=== PATIENT | male | born 1955 | race Caucasian/White ===

== ENCOUNTER 2017-04-26 17:37 | Emergency (ER) | payer BC, OTHER ==
[~2017-04-26] VITALS: Ht 180.3 cm; Wt 77.1 kg
[2017-04-26] MEDS ORDERED: NS IV 1000 ML 1,000 ML IV ONE (18:07)
--- NOTE | 2017-04-26 18:10 | ED Syncope ---
General Chief Complaint: Cardiac/General Problems Stated Complaint: LOW BP Nursing Triage Note: PT STATES HE HAD SUDDEN ONSET OF DIAPHORESIS AT HOME WHILE SITTING, STATES PT WAS HYPOTENSIVE. PT ALSO STATES HE BEGAN TO HAVE A HEADACHE WHILE ON THE WAY HERE BUT DENIES ANY PAIN OR DISCOMFORT NOW. Source of Information: Patient, RN Notes Reviewed, Spouse Exam Limitations: No Limitations History of Present Illness Time Seen by Provider: 17:57 Initial Comments Patient presents along c/ his c/ c/o having an episode shortly AFTER [employer] of becoming dizzy/lightheaded, as well as sweaty. Relatively short lived. found the patient's BP to be low during the event, although the patient states his BP always runs on the lower end. Upon arrival here, he is back to baseline and has no complaints @ this time. Was out in the heat and humidity earlier today. 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) All Other Systems Reviewed Negative Unless Noted: Yes (Negative excepted noted.) Past Zyimiqs-Msxelg-Jomlsm Hx Patient Social History Alcohol Use: Denies Use Recreational Drug Use: No Smoking Status: Current Everyday Smoker Type Used: Cigarettes Recent Foreign Travel: No Contact w/Someone Who Travel: No Recent Infectious Disease Expo: No Recent Hopitalizations: No Seasonal Allergies Seasonal Allergies: No Surgeries Surgeries: Orthopedic Physical Exam Vital Signs Vital Sign - Last 12Hours 04/26/17 04/26/17 17:54 20:10 Temp 96.9 Pulse 62 Resp 18 B/P (MAP) 112/72 Pulse Ox 99 Capillary Refill : Less Than 3 Seconds General Appearance: No Apparent Distress, WD/WN HEENT: PERRL/EOMI, Normal ENT Inspection Neck: Normal Inspection Cardiovascular: Regular Rate, Rhythm Respiratory: No Respiratory Distress Neurologic/Psychiatric: Alert, Oriented x3, No Motor/Sensory Deficits, Normal Mood/Affect Cranial Nerves: Normal Hearing, Normal Speech Coordination/Gait: Normal Gait Motor/Sensory: No Motor Deficit, No Sensory Deficit Skin: Warm/Dry Progress/Results/Core Measures Results/Orders Lab Results Laboratory Tests Test 04/26/17 17:48 04/26/17 18:24 Range/Units White Blood Count 7.1 4.3-11.0 10^3/uL Red Blood Count 5.09 4.35-5.85 10^6/uL Hemoglobin 15.3 13.3-17.7 G/DL Hematocrit 46 40-54 % Mean Corpuscular Volume 91 80-99 FL Mean Corpuscular Hemoglobin 30 25-34 PG Mean Corpuscular Hemoglobin Concent 33 32-36 G/DL Red Cell Distribution Width 13.6 10.0-14.5 % Platelet Count 151 130-400 10^3/uL Mean Platelet Volume 12.6 H 7.4-10.4 FL Neutrophils (%) (Auto) 66 42-75 % Lymphocytes (%) (Auto) 23 12-44 % Monocytes (%) (Auto) 10 0-12 % Eosinophils (%) (Auto) 1 0-10 % Basophils (%) (Auto) 0 0-10 % Neutrophils # (Auto) 4.7 1.8-7.8 X 10^3 Lymphocytes # (Auto) 1.6 1.0-4.0 X 10^3 Monocytes # (Auto) 0.7 0.0-1.0 X 10^3 Eosinophils # (Auto) 0.1 0.0-0.3 10^3/uL Basophils # (Auto) 0.0 0.0-0.1 10^3/uL Sodium Level 138 135-145 MMOL/L Potassium Level 3.7 3.6-5.0 MMOL/L Chloride Level 103 98-107 MMOL/L Carbon Dioxide Level 26 21-32 MMOL/L Anion Gap 9 5-14 MMOL/L Blood Urea Nitrogen 11 7-18 MG/DL Creatinine 1.16 0.60-1.30 MG/DL Estimat Glomerular Filtration Rate > 60 BUN/Creatinine Ratio 9 Glucose Level 129 H 70-105 MG/DL Calcium Level 9.2 8.5-10.1 MG/DL Magnesium Level 2.2 1.8-2.4 MG/DL Total Bilirubin 0.5 0.1-1.0 MG/DL Aspartate Amino Transf (AST/SGOT) 19 5-34 U/L Alanine Aminotransferase (ALT/SGPT) 13 0-55 U/L Alkaline Phosphatase 67 40-136 U/L Troponin I < 0.30 <0.30 NG/ML Total Protein 6.7 6.4-8.2 GM/DL Albumin 4.1 3.2-4.5 GM/DL Urine Color YELLOW Urine Clarity CLEAR Urine pH 7 5-9 Urine Specific Stout 1.015 L 1.016-1.022 Urine Protein 3+ H NEGATIVE Urine Glucose (UA) NEGATIVE NEGATIVE Urine Ketones NEGATIVE NEGATIVE Urine Nitrite NEGATIVE NEGATIVE Urine Bilirubin NEGATIVE NEGATIVE Urine Urobilinogen 1 NORMAL MG/DL Urine Leukocyte Esterase 1+ H NEGATIVE Urine RBC (Auto) NEGATIVE NEGATIVE Urine RBC 0-2 /HPF Urine WBC 2-5 /HPF Urine Squamous Epithelial Cells 2-5 /HPF Urine Crystals NONE /LPF Urine Bacteria TRACE /HPF Urine Casts PRESENT /LPF Urine Hyaline Casts RARE /LPF Urine Mucus MODERATE H /LPF Urine Culture Indicated NO My Orders Orders - NIKKO DUARTE DO Saline Lock/Iv-Start (04/26/17 18:07) Ekg Tracing (04/26/17 18:07) Cbc With Automated Diff (04/26/17 18:07) Comprehensive Metabolic Panel (04/26/17 18:07) Magnesium (04/26/17 18:07) Troponin I (04/26/17 18:07) Ua Culture If Indicated (04/26/17 18:07) Chest 1 View, Ap/Pa Only (04/26/17 18:07) Orthostatic Vital Signs (04/26/17 18:07) Saline Lock/Iv-Start (04/26/17 18:07) Ns Iv 1000 Ml (Sodium Chloride 0.9%) (04/26/17 18:07) Medications Given in ED Current Medications Medications Dose Ordered Sig/Emile Route Start Time Stop Time Status Last Admin Dose Admin Sodium Chloride 1,000 ml @ 0 mls/hr Q0M ONCE IV 04/26/17 18:07 04/26/17 18:12 DC 04/26/17 18:27 999 MLS/HR Vital Signs/I&O Vital Sign - Last 12Hours 04/26/17 04/26/17 04/26/17 17:54 19:45 20:10 Temp 96.9 96.9 Pulse 62 67 64 62 65 Resp 18 18 B/P (MAP) 112/72 Pulse Ox 99 Blood Pressure Mean: 85 ECG Initial ECG Impression Date: Apr 26, 2017 Initial ECG Impression Time: 17:55 Initial ECG Rate: 62 Initial ECG Rhythm: Normal Sinus Initial ECG Intervals: Normal Initial ECG Impression: Normal Initial ECG Comparisson: No Previous ECG Available Departure Impression Impression: Primary Impression: Near syncope Additional Impressions: Hypotension Proteinuria Disposition: 01 HOME, SELF-CARE Condition: Improved Departure-Patient Inst. Decision time for Depature: 20:05 Referrals: BRIE CUNNINGHAM MD (PCP/Family) Primary Care Physician Patient Instructions: Dehydration, Adult (DC) Add. Discharge Instructions: All discharge instructions reviewed with patient and/or family. Voiced understanding. RECOMMEND FOLLOW UP WITH YOUR PCP THIS WEEK TO HAVE THE PROTEIN IN YOUR URINE RECHECKED. KEEP HYDRATED AND DRINK PLENTY OF WATER. NIKKO DUARTE DO Apr 26, 2017 18:10
[2017-04-26 18:28] LABS: BASOPHILS % (AUTO) 0 % (0-10); EOSINOPHILS # (AUTO) 0.1 10^3/uL (0.0-0.3); EOSINOPHILS % (AUTO) 1 % (0-10); LYMPHOCYTES # (AUTO) 1.6 X 10^3 (1.0-4.0); LYMPHOCYTES % (AUTO) 23 % (12-44); MEAN CORPUSCULAR HEMOGLOBIN 30 PG (25-34); MEAN CORPUSCULAR HGB CONC 33 G/DL (32-36); MEAN CORPUSCULAR VOLUME 91 FL (80-99); MEAN PLATELET VOLUME 12.6 FL (7.4-10.4); MONOCYTES # (AUTO) 0.7 X 10^3 (0.0-1.0); MONOCYTES % (AUTO) 10 % (0-12); NEUTROPHILS # (AUTO) 4.7 X 10^3 (1.8-7.8); NEUTROPHILS % (AUTO) 66 % (42-75); PLATELET COUNT 151 10^3/uL (130-400); RED BLOOD COUNT 5.09 10^6/uL (4.35-5.85); RED CELL DISTRIBUTION WIDTH 13.6 % (10.0-14.5); WHITE BLOOD COUNT 7.1 10^3/uL (4.3-11.0)
[2017-04-26 18:40] LABS: ALANINE AMINOTRANSFERASE 13 U/L (0-55); ALBUMIN 4.1 GM/DL (3.2-4.5); ANION GAP 9 MMOL/L (5-14); ASPARTATE AMINO TRANSFERASE 19 U/L (5-34); BILIRUBIN,TOTAL 0.5 MG/DL (0.1-1.0); BLOOD UREA NITROGEN 11 MG/DL (7-18); BUN/CREATININE RATIO 9; CALCIUM 9.2 MG/DL (8.5-10.1); CARBON DIOXIDE 26 MMOL/L (21-32); CHLORIDE 103 MMOL/L (98-107); CREATININE SERUM 1.16 MG/DL (0.60-1.30); GFR ESTIMATED > 60; GLUCOSE 129 MG/DL (70-105); MAGNESIUM 2.2 MG/DL (1.8-2.4); POTASSIUM 3.7 MMOL/L (3.6-5.0); SODIUM 138 MMOL/L (135-145); TOTAL PROTEIN 6.7 GM/DL (6.4-8.2)
[2017-04-26 18:44] LABS: BILIRUBIN,URINE NEGATIVE (NEGATIVE); KETONES,URINE NEGATIVE (NEGATIVE); LEUKOCYTE ESTERASE ,URINE 1+ (NEGATIVE); NITRITE,URINE NEGATIVE (NEGATIVE); PH,URINE 7 (5-9); PROTEIN,URINE 3+ (NEGATIVE); UROBILINOGEN,URINE 1 MG/DL (NORMAL)
[2017-04-26 18:46] LABS: TROPONIN I < 0.30 NG/ML (<0.30)
[2017-04-26 18:59] LABS: HYALINE CASTS, URINE RARE /LPF
--- NOTE | 2017-04-26 19:44 | Diagnostic Imaging Report ---
INDICATION: Sweating profusely. COMPARISON: Unavailable. TECHNIQUE: Single frontal radiograph of the chest dated April 26, 2017. FINDINGS: The cardiac silhouette is within normal limits. No significant pulmonary vascular congestion. The lungs are clear. No pleural effusion. No pneumothorax. No acute osseous abnormality. IMPRESSION: No acute cardiopulmonary abnormality. Dictated by: Dictated on workstation # [id number]
[2017-04-26 20:10] VITALS: BP 112/73
== END 2017-04-26 20:13 | disposition home or self-care (01) ==
LOC: ER 17:39
DX: R55 Syncope and collapse (principal); I95.9 Hypotension, unspecified; R80.9 Proteinuria, unspecified; F17.210 Nicotine dependence, cigarettes, uncomplicated; Z98.890 Other specified postprocedural states
CPT/HCPCS: 36415; 71010; 80053; 81000; 83735; 84484; 85025; 93005; 96360